=== PATIENT | female | born 1985 | race Caucasian/White ===

== ENCOUNTER 2021-04-03 09:31 | Outpatient (CLI) | payer BC, SELFPAY ==
--- NOTE | ~2021-04-03 | US_ITS ---
EXAMINATION: US soft tissue abdomen EXAM DATE: 04/03/2021 10:04 INDICATION: R10.9 - Unspecified abdominal pain, lump. States pain is cyclical. Had CT scan at outside facility 2 months ago for same complaint where patient reports they did not identify abnormality. TECHNIQUE: Multiple grayscale and Doppler images of the symptomatic right lower quadrant subcutaneous region were obtained (by a technologist who performed the scan) and subsequently reviewed. Correlati on is made to pelvic sonogram obtained at same time. FINDINGS: Scanning in the symptomatic region demonstrated no abdominal wall defect/hernia, unremarkable abdomin al musculature. There was a hypoechoic region measuring 10 x 5 x 7 mm, within the subcutaneous fat 1- 2 cm below the skin surface. This is nonspecific but differential diagnosis includes endometriosis im plant, scar tissue (we were scanning in scar), fat necrosis. IMPRESSION: Small subcutaneous nonspecific region corresponding to patient's area of pain, differenti al diagnosis including scar tissue, endometriosis implant, fat necrosis. Reviewed, dictated and finalized at location A. LE EDGER IMPRESSION: Small subcutaneous nonspecific region corresponding to patient's ar ea of pain, differential diagnosis including scar tissue, endometriosis implant , fat necrosis.
--- NOTE | ~2021-04-03 | US_ITS ---
EXAMINATION: US pelvic complete w TV EXAM DATE: 04/03/2021 10:33 INDICATION: R10.9 - Unspecified abdominal pain, pelvic pain. TECHNIQUE: Pelvic transabdominal and transvaginal sonogram was performed. There are multiple graysca le and Doppler images available for interpretation. There is no prior study for comparison. FINDINGS: Uterus measures 8.9 x 4.6 x 4.5 cm, and is morphologically normal. Endometrial stripe me asures 8 mm, within normal limits. There is no free pelvic fluid. Right adnexa: The ovary is not identified. There is no adnexal mass. Left adnexa: The ovary measures 2.0 x 1.6 x 1.7 cm and is morphologically normal. Ovarian vascular fl ow confirmed. IMPRESSION: Unremarkable pelvic ultrasound exam. Reviewed, dictated and finalized at location A. L BALER
== END 2021-04-03 09:32 | disposition home or self-care (01) ==
PROVIDERS: Visit Provider Student in an Organized Health Care Education/Training Program
DX: R10.2 Pelvic and perineal pain (principal)
CPT/HCPCS: 76705; 76830; 76856

== ENCOUNTER → 2021-06-18 02:01 | Outpatient (CLI) | payer BC, SELFPAY ==
[2021-06-18 17:21] LABS: SARS-CoV-2 RNA PCR Negative
== END ==
PROVIDERS: Visit Provider Surgery
DX: Z01.812 Encounter for preprocedural laboratory examination (principal); Z20.822 Contact with and (suspected) exposure to COVID-19
CPT/HCPCS: C9803; U0003; U0005

== ENCOUNTER 2021-06-21 01:23 | Day surgery (SDC) | payer BC, SELFPAY ==
[2021-06-13 14:20] VITALS: BMI 49.7
--- NOTE | 2021-06-13 14:36 | PC.NURSE ---
Report to the Outpatient Waiting Room, entrance under the green pavilion located off [facility], at time _1130 on date __06/21/2021 . OR Time: _1330 . - You will be asked a series of questions to screen for COVID 19 for your protection. - A mask is required within the hospital. - No visitors are allowed at this time. Preoperative COVID Testing Requirements: No COVID Test needed if: (proof is required; if not received patient will have Rapid Test prior to entry) - Patient has received COVID Vaccine at least 14 days prior to procedure date or - Patient has positive COVID test result within last 90 days of surgery date. COVID Test needed if above criteria is not met-06/18 @ 0845. If not COVID vaccinated a COVID test must be conducted within 72 hours of surgery and patient is asked to isolate self from time of testing until procedure. You will go to the [facility] Testing [facility] for your COVID testing. The [facility] Testing site is located at the corner of [address] [facility]. You will only be called if COVID results are positive and your surgeon may reschedule your elective surgery date. Patients may have clear liquids (water, carbonated beverages, clear teas, apple juice) until 3 hours prior to surgery with a maximum of 20 ounces. - No food from midnight until time of surgery - Infants may have breast milk until 4 hours before surgery, formula 6 hours prior to surgery. - Children will be allowed to drink immediately following surgery. If applicable, please bring a bottle or sippy cup to assist with drinking. Juice, water, soda, and popsicles are readily available. For infants on formula, please bring formula the day of surgery. Pacifiers are allowed. Take the following medications with a SIP of water the morning of surgery: __N/A Medications to discontinue per physician N/A Date to take last dose Please no make-up, nail hebrew, hairspray, perfume, deodorant, or body powder the day of surgery. No jewelry (including any body piercings) or valuables the day of surgery, leave them at home. Please take a shower or bath the night before, or the morning of, surgery with an antibacterial soap. Wear comfortable, loose fitting clothing. Children are encouraged to wear pajamas. - Jewelry must be removed prior to entering the operating room. Rings and piercings that are not removed may be cut off. - The hospital will not accept responsibility for valuables. - Please leave all valuables, including medications, at home the day of surgery. If you are going home after surgery, a licensed pile driver engineer must drive you home. - NO public transportation without another adult. - We recommend that an adult stay with you for 24 hours following discharge. - We also recommend that you do not drive, make important decision, drink alcoholic beverages, or take any drugs that were not prescribed by your health care provider for at least 24 hours after your discharge time. For Pediatric surgeries, we recommend two adults accompany the child home (only one inside the building at this time). Follow any additional instructions given to you from your surgeon. Telephone instructions given to ___patient and asked if any additional questions and then verbalized understanding. Patient advised to call surgeon office or pre surgery nurse liaison [phone] if any additional questions.
[2021-06-21] MEDS: LACTATED RINGERS 1,000 ML 30 ML IV CONT (11:30)
[2021-06-21 11:45] VITALS: BP 132/69; PULSE 70; RESP 16; TEMP 36.8; O2SAT 100
--- NOTE | 2021-06-21 13:19 | WPDHPUPDATE1 ---
History and Physical Update Update Date/Time: 06/21/21 13:19 History and Physical has been reviewed, including an updated exam of the patient. There are NO changes in the patient's condition. Risks, benefits, and alternatives have been discussed and questions answered. Patient agrees to proceed with procedure.
--- NOTE | 2021-06-21 13:31 | WPDANESEPPF ---
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 Patient Data Age: 35 Gender: F Height: 1.57 m Weight: 125 kg Last Vital Signs Temp 36.8 C 06/21/21 11:45 Pulse 70 06/21/21 11:45 Resp 16 06/21/21 11:45 BP 132/69 06/21/21 11:45 Pulse Ox 100 06/21/21 11:45 Allergies Allergy/AdvReac Type Severity Reaction Status Date / Time No Known Allergies Allergy Mild Verified 06/21/21 13:10 Home Medications Medication Instructions Recorded Confirmed Type acetaminophen 325 mg capsule 325 mg PO Q6H PRN 03/20/21 06/21/21 History Patient hx anesthesia problems: none Family hx anesthesia problems: none Results Review: All pre-operative results and documents have been reviewed as part of the pre-operative evaluation. [facility] Past Medical History Medical History Diabetes Endometriosis in scar History of miscarriage x 1 History of vaginal delivery x 2 Surgical History Surgical History History of section x 2 History of tubal ligation Family History Family History Grandparent Family history of elevated blood lipids Family history of coronary artery disease Diabetes mellitus Hypertension Depression Heart disease Mother Family history of diabetes mellitus in first degree relative Hypertension Depression Father Lung cancer Hypertension Heart disease Social History Social History Smoking packs per day: 0.33 Smoking cigarettes per day: 6.6 Years smoked: 18 Smoking pack-years: 5.94 Smoking status: Current every day smoker Tobacco type: cigarettes Second hand tobacco smoke exposure: Yes Alcohol intake: current Alcohol use details: 1-2X/YEAR Substance use: current Substance use type: marijuana Other substance usage details: DAILY MARIJUANA USAGE Living arrangements: with family Spiritual care concerns: No Anes - Eval Final PreProcedure Day of Procedure 06/21/21 13:31 Patient weight: super morbidly obese Heart: regular rate and rhythm Lungs: clear to auscultation Airway: Mallampati scale class II Neurological: alert and oriented Last oral intake: >/= 8 hours ASA classification: III Emergent: no Anesthetic plan: proceed Anesthesia type and monitoring: general GIVS and standard monitoring Results Review: All pre-operative results and documents have been reviewed as part of the pre-operative evaluation. Informed Consent: The patient's anesthetic plan and its attendant risks and benefits were discussed with the patient/family/POA. Questions were solicited and answers provided to the satisfaction of the patient/family/POA.
[2021-06-21] MEDS: ceFAZolin 3 GM/D5W 100 ML 100 ML IVPB (13:43)
[2021-06-21] MEDS: LIDO 1%/EPINEPHRINE 1:100,000 50 ML VIAL INFILTRATE (14:01)
--- NOTE | 2021-06-21 14:24 | W.PM.PROC2 ---
Procedure Note - Detailed Date of Procedure 06/21/21 Pre-op Diagnosis endometriosis in csection scar Post-op Diagnosis same Procedure Performed 1. Excision of 5 cm abdominal wall mass 2. Layered closure Surgeon Chad Celestin, DO Anesthesia MAC and local (1% lidocaine with epinephrine) Indications This is a 35-year-old woman who presents with a painful abdominal wall mass and her scar from previous . She has been experiencing intermittent swelling and pain in this region for several months. A soft tissue ultrasound was obtained and this showed evidence of a soft tissue mass about 2 cm deep to the skin showing possible signs of an endometrial cyst. Discussions were made with the patient about treatment options and decision was made to proceed with excision of abdominal wall mass. Findings The abdominal wall mass within the scar was completely excised intact. Care was taken to widely excise this region to prevent any spillage of contents. The mass measured about 5 cm when excised with margins. A layered closure was then performed using 3-0 Vicryl simple interrupted sutures in Deann's fascia and 4-0 Monocryl running subcuticular suture. Description of Procedure Procedure as well as risks, benefits, and alternatives were discussed with the patient. Written consent was obtained and placed in chart prior to procedure. Patient was brought back to surgical suite. She was placed supine on operating table. Time-out was done to confirm patient and procedure. IV sedation was then administered by the anesthesia department. Her right lower abdomen area was prepped and draped in sterile fashion using chlorhexidine prep. The palpable mass was noted in the right lateral edge of her scar. 1% lidocaine with epinephrine was infiltrated locally over this region. A 5 cm incision was then made using a 15 blade scalpel. Electrocautery was then used for hemostasis and for careful dissection around the mass. The mass was carefully dissected free and excised completely using electrocautery. The mass extended throughout the subcutaneous tissue all the way down to near the abdominal wall fascia, but it did not extend deep to the fascia. The mass was completely excised intact and was sent to the lab for pathology. Hemostasis was then achieved with electrocautery. The wound was then irrigated with sterile saline. No other abnormalities were noted. Deann's fascia was then reapproximated using 3-0 Vicryl simple interrupted sutures. The skin was then approximated using 4 Monocryl running subcuticular suture. Exofin glue was then applied on top. The patient was then awakened from anesthesia, and she was transferred to recovery. Estimated Blood Loss 5 Pathology yes (5 cm abdominal wall mass) Complications No immediate complications Condition stable Disposition same day
[2021-06-21 14:25] VITALS: BP 108/52; PULSE 84; RESP 16; O2SAT 95
[2021-06-21 14:55] VITALS: BP 120/80; PULSE 87; RESP 16
[2021-06-21 15:20] VITALS: BP 118/75; PULSE 85; RESP 16
[2021-06-21] MEDS: ONDANSETRON HCL ODT 4 MG TABLET PO (15:30)
== END 2021-06-21 15:35 | disposition home or self-care (01) ==
PROVIDERS: Visit Provider Surgery
PROC: (CPT 11406; principal; 2021-06-21 13:30)
DX: N80.6 Endometriosis in cutaneous scar (principal); E11.9 Type 2 diabetes mellitus without complications; F17.210 Nicotine dependence, cigarettes, uncomplicated; F12.90 Cannabis use, unspecified, uncomplicated; E66.01 Morbid (severe) obesity due to excess calories; Z68.43 Body mass index [BMI] 50.0-59.9, adult
CPT/HCPCS: 11406; 12032; 88304; 88305; A9270; J0690; J2250; J2704; J3010; J7120